=== PATIENT | female | born 1955 | race Caucasian/White ===

== ENCOUNTER 2019-12-12 15:47 | Inpatient (IN) | payer BC, OTHER ==
[2019-12-12] MEDS ORDERED: Acetaminophen 325 MG Tab PO PRN (17:07)
[2019-12-12] MEDS ORDERED: Ondansetron 4 MG/2 ML SDV IVPUSH PRN (21:03)
[2019-12-12] MEDS ORDERED: Ondansetron 4 MG Tab.DIS PO PRN (21:03)
--- NOTE | 2019-12-12 21:15 | PCM.HP ---
H&P History of Present Illness - General Date of Service: 12/12/19 Admit Problem/Dx: Admission Diagnosis/Problem Admission Diagnosis/Problem Hypokalemia Source of Information: Patient - History of Present Illness Initial Comments - Free Text/Narative: Patient is a 64-year-old female with medical history significant for dyslipidemia, depression, GERD, reactive airway disease, obesity, and elevated liver results who presented to the clinic with complaints of fatigue and weakness was found to have severe hypokalemia so was referred for admission. Patient reports that she tested positive for COVID-19 on 11/28/2019. Reports that she had intermittent fevers but symptoms resolved this past Wednesday. Reports that today she felt significantly fatigued and was also having a headache so came to the clinic. She was found to have potassium of 2.7. Also her chest x-ray showed possible infiltrate. She was referred for admission. Patient reports cough without sputum production. Reports that she gets short of breath with exertion. Denies any bleeding problems while at rest. Denies getachew sea, vomiting, diarrhea, constipation, dysuria, chest pain, diaphoresis, or any new symptoms. Reports that her headache is resolved at this point. Denies tobacco use. States that her last alcohol intake was about 2 months ago. However normally drinks 1 drink of wine at night. Denies any illicit drug use. - Related Data Allergies/Adverse Reactions: Allergies Allergy/AdvReac Type Severity Reaction Status Date / Time amoxicillin trihydrate Allergy Cannot Verified 12/12/19 16:36 [From Augmentin] Remember aspirin Allergy Cannot Verified 12/12/19 16:36 Remember erythromycin base Allergy Cannot Verified 12/12/19 16:36 [Erythromycin Base] Remember potassium clavulanate Allergy Cannot Verified 12/12/19 16:36 [From Augmentin] Remember Home Medications: Home Meds FLUoxetine HCl [Prozac] 20 mg PO DAILY 07/07/13 [History] Fexofenadine/Pseudoephedrine [Sabrina-D 12 Hour Tablet] 1 each PO BID 07/07/13 [History] Omeprazole [Prilosec] 20 mg PO DAILY 07/07/13 [History] Pravastatin [Pravachol] 40 mg PO BEDTIME 12/12/19 [History] Past Medical History HEENT History: Reports: None Gastrointestinal History: Reports: None COMMODITIES REQUIREMENTS ANALYST History: Reports: Other (See Below) Other OB/BYN History: partial hysterectomy - Infectious Disease History Infectious Disease History: Reports: Chicken Pox, Measles, Mumps - Past Surgical History HEENT Surgical History: Reports: Naso-Sinus Surgery GI Surgical History: Reports: Cholecystectomy Social & Family History - Family History Family Medical History: Noncontributory - Tobacco Use Smoking Status *Q: Never Smoker Second Hand Smoke Exposure: No - Caffeine Use Caffeine Use: Reports: Coffee, Tea - Recreational Drug Use Recreational Drug Use: No H&P Review of Systems - Review of Systems: Review Of Systems: Comprehensive ROS is negative, except as noted in HPI. Exam - Exam Exam: See Below - Vital Signs Vital Signs: Last Vital Signs Temp 97.6 F 12/12/19 19:48 Pulse 111 H 12/12/19 19:48 Resp 20 12/12/19 19:48 BP 139/80 12/12/19 19:48 Pulse Ox 89 L 12/12/19 19:48 Weight: 174 lb - Exam Quality Assessment: Supplemental Oxygen (2L via nasal cannula.) General: Alert, Oriented, Cooperative, Mild Distress HEENT: Conjunctiva Clear, EOMI, Hearing Intact Neck: Supple, Trachea Midline Lungs: Normal Respiratory Effort, Crackles (Fine crackles. ) Cardiovascular: Regular Rate, Regular Rhythm, Normal S1 GI/Abdominal Exam: Normal Bowel Sounds, Soft, Non-Tender, No Distention Extremities: Normal Inspection, Non-Tender, No Pedal Edema Skin: Warm, Dry, Intact Neuro Extensive - Mental Status: Alert, Oriented x3, Normal Mood/Affect, Memory Intact Psychiatric: Alert, Normal Affect, Normal Mood - Patient Data Result Diagrams: 12/12/19 21:33 - Problem List (1) Pneumonia due to COVID-19 virus SNOMED Code(s): 456538630181944265 ICD Code: U07.1 - COVID-19; J12.89 - OTHER VIRAL PNEUMONIA Status: Acute Current Visit: Yes (2) Hypokalemia SNOMED Code(s): 53520539 ICD Code: E87.6 - HYPOKALEMIA Status: Acute Current Visit: Yes (3) Acute respiratory failure due to COVID-19 SNOMED Code(s): 990982298 ICD Code: U07.1 - COVID-19; J96.00 - ACUTE RESPIRATORY FAILURE, UNSP W HYPOXIA OR HYPERCAPNIA Status: Acute Current Visit: Yes Problem List Initiated/Reviewed/Updated: Yes Orders Last 24hrs: Active Orders 24 hr Category Date Time Status Patient Status [ADT] Routine ADT 12/12/19 21:04 Ordered Ambulate [RC] ASDIRECTED Care 12/12/19 17:08 Active Influenza Vaccine Charge [RC] .DISCHARGE Care 12/12/19 16:38 Active Oxygen Therapy [RC] PRN Care 12/12/19 21:04 Ordered Peripheral IV Care [RC] . DIRECTED Care 12/12/19 17:06 Active Supplemental O2 [Oxygen Therapy] [RC] ASDIRECTED Care 12/12/19 17:06 Active Telemetry Monitoring [Cardiac Monitoring] [RC] . Care 12/12/19 17:04 Active DIRECTED Up With Assistance [RC] ASDIRECTED Care 12/12/19 21:03 Ordered VTE/DVT Education [RC] PER UNIT ROUTINE Care 12/12/19 21:04 Ordered Vital Signs [RC] Q4H Care 12/12/19 17:08 Active Vital Signs [RC] Q4H Care 12/12/19 21:04 Ordered Regular Diet [DIET] Diet 12/12/19 Dinner Active Regular Diet [DIET] Diet 12/12/19 Dinner Ordered BASIC METABOLIC PANEL,BMP [CHEM] AM Lab 12/13/19 05:11 Ordered C-REACTIVE PROTEIN [CHEM] Routine Lab 12/12/19 21:11 Ordered CBC W/O DIFF,HEMOGRAM [HEME] AM Lab 12/13/19 05:11 Ordered D-DIMER QUANTITATIVE [COAG] Routine Lab 12/12/19 21:11 Ordered FERRITIN [CHEM] Routine Lab 12/12/19 21:11 Ordered LACTATE DEHYDROGENASE,LDH [CHEM] Routine Lab 12/12/19 21:11 Ordered MAGNESIUM [CHEM] Stat Lab 12/12/19 21:03 Ordered PHOSPHORUS [CHEM] Stat Lab 12/12/19 21:03 Ordered POTASSIUM,K [CHEM] Stat Lab 12/12/19 21:03 Ordered TROPONIN I [CHEM] Routine Lab 12/12/19 21:11 Ordered Acetaminophen [TylenoL] Med 12/12/19 17:07 Active 650 mg PO Q4H PRN Enoxaparin [Lovenox] Med 12/12/19 21:15 Ordered 40 mg SUBCUT BID FLUoxetine HCl [Prozac] Med 10/07/20 09:00 Ordered 20 mg PO DAILY Fexofenadine/Pseudoephedrine [Sabrina-D 12 Hour Tablet] Med 12/13/19 09:00 Ordered 1 each PO BID Lactated Ringers @ 125 MLS/HR(1000ml) Med 12/12/19 21:15 Ordered Lactated Ringers [Ringers, Lactated] 1,000 ml IV ASDIRECTED Omeprazole Med 12/13/19 09:00 Ordered 20 mg PO DAILY Ondansetron [Zofran ODT] Med 12/12/19 21:03 Ordered 4 mg PO Q6H PRN Ondansetron [Zofran] Med 12/12/19 21:03 Ordered 4 mg IVPUSH Q6H PRN Pharmacy to Dose - InFluenza V [Pharmacy to Dose - Med 12/12/19 16:38 Pending InFluenza Vaccine] 1 each IM ONETIME Pravastatin Sodium Med 12/13/19 21:00 Ordered 40 mg PO BEDTIME Remdesivir (Eua) [Remdesivir (EUA)] 100 mg Med 12/13/19 21:15 Ordered Sodium Chloride 0.9% [Normal Saline] 230 ml IV Q24H Remdesivir (Eua) [Remdesivir (EUA)] 200 mg Med 12/12/19 21:12 Ordered Sodium Chloride 0.9% [Normal Saline] 210 ml IV ONETIME Sodium Chloride 0.9% [Saline Flush] Med 12/12/19 17:06 Active 10 ml FLUSH ASDIRECTED PRN dexAMETHasone [Dexamethasone] Med 12/12/19 21:15 Ordered 6 mg IVPUSH DAILY Isolation [COMM] Routine Oth 12/12/19 17:09 Active Peripheral IV Insertion Adult [OM.PC] Routine Oth 12/12/19 17:06 Ordered Code Status [Resuscitation Status] Routine Resus Stat 12/12/19 17:04 Ordered Medication Orders Acetaminophen (Tylenol) 650 mg PO Q4H PRN PRN Reason: pain or fever Enoxaparin Sodium (Lovenox) 40 mg SUBCUT BID DICK Lactated Ringer's (Ringers, Lactated) 1,000 mls @ 125 mls/hr IV ASDIRECTED DICK Influenza Virus Vaccine (Pharmacy To Dose - Influenza Vaccine) 1 each IM ONETIME DICK Non-Formulary Medication (Fexofenadine/Pseudoephedrine [Sabrina-D 12 Hour Tablet]) 1 each PO BID DICK Non-Formulary Medication (Fluoxetine Hcl [Prozac]) 20 mg PO DAILY DICK Non-Formulary Medication (Pravastatin Sodium) 40 mg PO BEDTIME DICK Omeprazole (Omeprazole) 20 mg PO DAILY DICK Ondansetron HCl (Zofran Odt) 4 mg PO Q6H PRN PRN Reason: nausea, able to take PO Ondansetron HCl (Zofran) 4 mg IVPUSH Q6H PRN PRN Reason: Nausea/Vomiting Sodium Chloride (Saline Flush) 10 ml FLUSH ASDIRECTED PRN PRN Reason: Keep Vein Open Assessment/Plan Comment:: #Severe hypokalemia: Patient with potassium of 2.7. With associated weakness and fatigue. Repeat potassium levels Check magnesium and phosphorus Telemonitoring Monitor replace electrolytes #COVID-19 pneumonia: #Acute respiratory failure with hypoxia Obtain d-dimer, ferritin, lactic acid, and troponin Patient tested positive on 11/28/2019, already 14 days out. Dexamethasone Supplemental oxygen, titrate to SPO2 > 92% Incentive spirometer #Mood disorder Continue Prozac #GERD: Continue Prilosec #Dyslipidemia Pravachol DVT prophylaxis: Lovenox GI prophylaxis: General diet, CODE STATUS: Full code per patient preference
[2019-12-12] MEDS ORDERED: Enoxaparin 40 MG/0.4 ML Syringe SUBCUT ONE (22:00)
[2019-12-12] MEDS: Dexamethasone 4 MG/ML SDV IVPUSH SCH (22:19)
[2019-12-12] MEDS: Lactated Ringers 1,000 ML IV SCH (22:24)
[2019-12-12] MEDS: Potassium Chloride 10 MEQ in Premix Bag 1 BAG IV SCH (23:04)
[2019-12-13] MEDS: Potassium Chloride 10 MEQ in Premix Bag 1 BAG IV SCH ×3 (00:31→03:29)
[2019-12-13] MEDS: Omeprazole 20 MG Cap.CR PO SCH (05:04)
[2019-12-13] MEDS: Lactated Ringers 1,000 ML IV SCH (05:09)
[2019-12-13 07:19] LABS: ANION GAP 11.9 mEq/L (7-13); CHLORIDE,CL 108 mmol/L (98-107); SODIUM,NA 146 mmol/L (136-145)
[2019-12-13] MEDS: Potassium Chloride 10 MEQ Tab.ER PO SCH ×2 (08:51→17:17)
[2019-12-13] MEDS: Dexamethasone 4 MG/ML SDV IVPUSH SCH (08:52)
[2019-12-13] MEDS: Enoxaparin 40 MG/0.4 ML Syringe SUBCUT SCH ×2 (08:53→21:20)
[2019-12-13] MEDS: FLUoxetine 10 MG Cap PO SCH (08:54)
[2019-12-13] MEDS ORDERED: diphenhydrAMINE 50 MG/ML SDV IVPUSH ONE (12:48)
[2019-12-13] MEDS ORDERED: Sodium Chloride 0.9% 250 ML IV SCH (13:00)
--- NOTE | 2019-12-13 13:01 | PCM.PN ---
- General Info Date of Service: 12/13/19 Admission Dx/Problem (Free Text): Admission Diagnosis/Problem Admission Diagnosis/Problem Hypokalemia Subjective Update: No acute events overnight. Her ferritin came back at 2280, d-dimer was 1090. Potassium is increased to 3.6. Her LDH was elevated at 276. Troponin was negative. CRP was also elevated at 7.8. Patient continues to require supplemental oxygen. Reports that she continues to feel very weak and tired. Denies nausea, vomiting, diarrhea, constipation, dysuria, hematuria, edema, or any new symptoms. - Patient Data Vitals - Most Recent: Last Vital Signs Temp 97 F 12/13/19 08:48 Pulse 71 12/13/19 08:48 Resp 21 H 12/13/19 08:48 BP 142/82 H 12/13/19 08:48 Pulse Ox 93 L 12/13/19 12:49 Weight - Most Recent: 174 lb I&O - Last 24 Hours: Intake & Output 12/12/19 12/13/19 12/13/19 22:59 06:59 14:59 Intake Total 1974 Output Total 800 750 Balance 1174 -750 Lab Results Last 24 Hours: Laboratory Results - last 24 hr 12/12/19 12/12/19 12/12/19 Range/Units 21:33 21:33 21:33 WBC (5.0-10.0) 10^3/uL RBC (4.2-5.4) 10^6/uL Hgb (12.0-16.0) g/dL Hct (37.0-47.0) % MCV (80-100) fL MCH (27.0-34.0) pg MCHC (33.0-35.0) g/dL Plt Count (150-450) 10^3/uL D-Dimer, Quantitative 1090 H (0-400) ng/mL Sodium (136-145) mmol/L Potassium 2.6 L (3.5-5.1) mmol/L Chloride (98-107) mmol/L Carbon Dioxide (21-32) mmol/L Anion Gap (7-13) mEq/L BUN (7-18) mg/dL Creatinine (0.55-1.02) mg/dL Est Cr Clr Drug Dosing mL/min Estimated GFR (MDRD) Glucose (74-99) mg/dL Calcium (8.5-10.1) mg/dL Phosphorus 2.3 L (2.6-4.7) mg/dL Magnesium 1.9 (1.8-2.4) mg/dL Ferritin 2280 H (8-252) mg/mL Lactate Dehydrogenase 276 H (81-234) U/L Troponin I < 0.017 (0.000-0.056) ng/mL C-Reactive Protein 7.8 H (0.0-0.9) mg/dL 12/13/19 12/13/19 Range/Units 06:32 06:32 WBC 8.0 (5.0-10.0) 10^3/uL RBC 4.35 (4.2-5.4) 10^6/uL Hgb 13.3 (12.0-16.0) g/dL Hct 39.4 (37.0-47.0) % MCV 90.6 (80-100) fL MCH 30.6 (27.0-34.0) pg MCHC 33.8 (33.0-35.0) g/dL Plt Count 285 (150-450) 10^3/uL D-Dimer, Quantitative (0-400) ng/mL Sodium 146 H (136-145) mmol/L Potassium 3.9 (3.5-5.1) mmol/L Chloride 108 H (98-107) mmol/L Carbon Dioxide 30 (21-32) mmol/L Anion Gap 11.9 (7-13) mEq/L BUN 9 (7-18) mg/dL Creatinine 0.53 L (0.55-1.02) mg/dL Est Cr Clr Drug Dosing 104.28 mL/min Estimated GFR (MDRD) > 60 Glucose 136 H (74-99) mg/dL Calcium 8.9 (8.5-10.1) mg/dL Phosphorus (2.6-4.7) mg/dL Magnesium (1.8-2.4) mg/dL Ferritin (8-252) mg/mL Lactate Dehydrogenase (81-234) U/L Troponin I (0.000-0.056) ng/mL C-Reactive Protein (0.0-0.9) mg/dL Med Orders - Current: Current Medications Acetaminophen (Tylenol) 650 mg PO Q4H PRN PRN Reason: pain or fever Dexamethasone (Dexamethasone) 6 mg IVPUSH DAILY [facility] Last Admin: 12/13/19 08:52 Dose: 6 mg Documented by: Diphenhydramine HCl (Benadryl) 25 mg IVPUSH ONETIME ONE Stop: 12/13/19 12:49 Enoxaparin Sodium (Lovenox) 40 mg SUBCUT BID [facility] Last Admin: 12/13/19 08:53 Dose: 40 mg Documented by: Fluoxetine HCl (Prozac) 20 mg PO DAILY [facility] Last Admin: 12/13/19 08:54 Dose: 20 mg Documented by: Lactated Ringer's (Ringers, Lactated) 1,000 mls @ 125 mls/hr IV ASDIRECTED [facility] Last Admin: 12/13/19 05:09 Dose: 125 mls/hr Documented by: Sodium Chloride (Normal Saline) 250 mls @ 20 mls/hr IV ASDIRECTED [facility] Remdesivir 200 mg/ Sodium (Chloride) 210 mls @ 210 mls/hr IV ONETIME ONE Stop: 12/13/19 12:51 Remdesivir 100 mg/ Sodium (Chloride) 230 mls @ 230 mls/hr IV Q24H [facility] Influenza Virus Vaccine (Pharmacy To Dose - Influenza Vaccine) 1 each IM ON ETIME [facility] Non-Formulary Medication (Fexofenadine/Pseudoephedrine [Sabrina-D 12 Hour Tablet]) 1 each PO BID [facility] Omeprazole (Omeprazole) 20 mg PO ACBREAKFAST [facility] Last Admin: 12/13/19 05:04 Dose: 20 mg Documented by: Ondansetron HCl (Zofran Odt) 4 mg PO Q6H PRN PRN Reason: nausea, able to take PO Ondansetron HCl (Zofran) 4 mg IVPUSH Q6H PRN PRN Reason: Nausea/Vomiting Potassium Chloride (Klor-Con 10) 40 meq PO BIDMEALS [facility] Last Admin: 12/13/19 08:51 Dose: 40 meq Documented by: Pravastatin Sodium (Pravachol) 40 mg PO BEDTIME [facility] Sodium Chloride (Saline Flush) 10 ml FLUSH ASDIRECTED PRN PRN Reason: Keep Vein Open Discontinued Medications Enoxaparin Sodium (Lovenox) 40 mg SUBCUT ONETIME ONE Stop: 12/12/19 22:01 Last Admin: 12/12/19 22:17 Dose: 40 mg Documented by: Remdesivir 200 mg/ Sodium (Chloride) 210 mls @ 210 mls/hr IV ONETIME ONE Stop: 12/12/19 21:13 Last Admin: 12/13/19 01:11 Dose: Not Given Documented by: Remdesivir 100 mg/ Sodium (Chloride) 230 mls @ 230 mls/hr IV Q24H DICK Potassium Chloride 10 meq/ (Premix) 100 mls @ 100 mls/hr IV Q1H DICK Stop: 12/13/19 02:14 Last Infusion: 12/13/19 04:57 Dose: Infused Documented by: - Exam Quality Assessment: Supplemental Oxygen (3L via NC) General: Alert, Oriented, Cooperative, Moderate Distress HEENT: Pupils Equal, Pupils Reactive, Mucous Membr. Moist/[place] Neck: Supple Lungs: Rales (Bilateral) Cardiovascular: Regular Rhythm, No Murmurs, Tachycardia GI/Abdominal Exam: Normal Bowel Sounds, Soft, Non-Tender, No Distention Extremities: Normal Inspection, Non-Tender, No Pedal Edema Skin: Warm, Dry, Intact Neurological: No New Focal Deficit Psy/Mental Status: Alert, Normal Affect, Normal Mood Sepsis Event Note - Evaluation Sepsis Screening Result: No Definite Risk - Focused Exam Vital Signs: Vital Signs Temp Pulse Resp BP BP Pulse Ox Pulse Ox 12/13/19 12:49 93 L 12/13/19 08:48 97 F 71 21 H 142/82 H 91 L 12/13/19 04:03 97 F 70 24 H 121/67 94 L 12/13/19 00:58 78 24 H 128/67 92 L - Problem List & Annotations (1) Pneumonia due to COVID-19 virus SNOMED Code(s): 047639521827108892 Code(s): U07.1 - COVID-19; J12.89 - OTHER VIRAL PNEUMONIA Status: Acute Current Visit: Yes (2) Hypokalemia SNOMED Code(s): 40700269 Code(s): E87.6 - HYPOKALEMIA Status: Acute Current Visit: Yes (3) Acute respiratory failure due to COVID-19 SNOMED Code(s): 476319138 Code(s): U07.1 - COVID-19; J96.00 - ACUTE RESPIRATORY FAILURE, UNSP W HYPOXIA OR HYPERCAPNIA Status: Acute Current Visit: Yes - Problem List Review Problem List Initiated/Reviewed/Updated: Yes - My Orders Last 24 Hours: My Active Orders 12/12/19 Dinner Regular Diet [DIET] 12/12/19 21:03 Up With Assistance [RC] ASDIRECTED Ondansetron [Zofran ODT] 4 mg PO Q6H PRN Ondansetron [Zofran] 4 mg IVPUSH Q6H PRN 12/12/19 21:04 Patient Status [ADT] Routine Oxygen Therapy [RC] PRN VTE/DVT Education [RC] PER UNIT ROUTINE Vital Signs [RC] 00,04,08,12,16,20 12/12/19 21:15 Lactated Ringers [Ringers, Lactated] 1,000 ml IV ASDIRECTED dexAMETHasone [Dexamethasone] 6 mg IVPUSH DAILY 12/13/19 06:00 Omeprazole 20 mg PO ACBREAKFAST 12/13/19 08:00 Chest w Cont [CT] Routine Potassium Chloride [Klor-Con 10] 40 meq PO BIDMEALS 12/13/19 08:27 Antiembolic Devices [RC] 08,20 RALPH Hose [Antiembolic Hose] [OM.PC] Routine 12/13/19 09:00 Enoxaparin [Lovenox] 40 mg SUBCUT BID FLUoxetine [PROzac] 20 mg PO DAILY Fexofenadine/Pseudoephedrine [Sabrina-D 12 Hour Tablet] 1 each PO BID 12/13/19 12:48 Verify Patient Consent Obtain [RC] ASDIRECTED FRESH FROZEN PLASMA [BBK] Routine diphenhydrAMINE [Benadryl] 25 mg IVPUSH ONETIME ONE Isolation [COMM] Stat Transfuse Fresh Frozen Plasma [COMM] Routine 12/13/19 12:50 Remdesivir (Eua) [Remdesivir (EUA)] 200 mg Sodium Chloride 0.9% [Normal Saline] 210 ml IV ONETIME 12/13/19 12:51 CBC WITH AUTO DIFF [HEME] Routine 12/13/19 13:00 Sodium Chloride 0.9% [Normal Saline] 250 ml IV ASDIRECTED 12/13/19 21:00 Pravastatin [Pravachol] 40 mg PO BEDTIME 12/14/19 05:00 BASIC METABOLIC PANEL,BMP [CHEM] DAILY D-DIMER QUANTITATIVE [COAG] DAILY FERRITIN [CHEM] DAILY HEPATIC FUNCTION PANEL,HFP [CHEM] DAILY LACTATE DEHYDROGENASE,LDH [CHEM] DAILY LACTIC ACID [CHEM] DAILY MAGNESIUM [CHEM] DAILY PROCALCITONIN [REF] DAILY TROPONIN I [CHEM] DAILY 12/14/19 05:11 C-REACTIVE PROTEIN [CHEM] AM 12/14/19 13:00 Remdesivir (Eua) [Remdesivir (EUA)] 100 mg Sodium Chloride 0.9% [Normal Saline] 230 ml IV Q24H 12/15/19 05:00 BASIC METABOLIC PANEL,BMP [CHEM] DAILY D-DIMER QUANTITATIVE [COAG] DAILY FERRITIN [CHEM] DAILY HEPATIC FUNCTION PANEL,HFP [CHEM] DAILY LACTATE DEHYDROGENASE,LDH [CHEM] DAILY LACTIC ACID [CHEM] DAILY MAGNESIUM [CHEM] DAILY PROCALCITONIN [REF] DAILY TROPONIN I [CHEM] DAILY 12/15/19 05:11 C-REACTIVE PROTEIN [CHEM] AM 12/16/19 05:00 BASIC METABOLIC PANEL,BMP [CHEM] DAILY D-DIMER QUANTITATIVE [COAG] DAILY FERRITIN [CHEM] DAILY HEPATIC FUNCTION PANEL,HFP [CHEM] DAILY LACTATE DEHYDROGENASE,LDH [CHEM] DAILY LACTIC ACID [CHEM] DAILY MAGNESIUM [CHEM] DAILY PROCALCITONIN [REF] DAILY TROPONIN I [CHEM] DAILY 12/16/19 05:11 C-REACTIVE PROTEIN [CHEM] AM - Plan Plan:: #Severe hypokalemia: Resolved with aggressive replacement. K up to 3.9. Patient presented with potassium of 2.7. With associated weakness and fatigue. Repeat potassium levels Check magnesium and phosphorus Telemonitoring Monitor replace electrolytes #COVID-19 pneumonia:: #Acute respiratory failure with hypoxia. Patient tested positive on 11/28/2019, -Continue Remdesivir -Give 2 units of convalescent plasma -Dexamethasone -Supplemental oxygen, titrate to SPO2 > 92% -Incentive spirometer -CT chest PE protocol due to elevated D-dimer -I spoke with patient and provided information about Remdesevir treatment as being under emergency use authorization (EUA) and not fully FDA approved or reviewed. I discussed potential side effects including liver abnormalities. Also discussed other potential treatment options that are currently not FDA approved to treat COVID-19. Patient gives permission for Remdesevir. #Mood disorder Continue Prozac #GERD: Continue Prilosec #Dyslipidemia Pravachol DVT prophylaxis: Lovenox GI prophylaxis: General diet, CODE STATUS: Full code per patient preference
[2019-12-13] MEDS ORDERED: Iopamidol 755 Mg/ML 100 ML Bottle IVPUSH ONE (15:48)
--- NOTE | 2019-12-13 16:14 | CT ---
EXAMINATION: Chest w Cont SEX: Female AGE: 64 years CLINICAL HISTORY: 64-year-old 174 pound female hospitalized with "COVID viral infection and now elevated serum D dimer (1090). Rule out pulmonary embolism or infarct. Scan technique: Volume acquisition of data from the chest (bony thorax, lungs and mediastinum) obtained during the intravenous infusion 66 cc nonionic Isovue 370 at 5 cc/s via injector while patient was lying supine on the Siemens multi slice scanner [place], [place]. All data archived in the PACS system for storage, reformatting axial/sagittal/coronal planes and study. Interpretation: Markedly Abnormal. 1. Numerous (multiple) peripheral, pleural-based, parenchymal lung densities in distribution of and consistent with COVID19 viral infection i.e. Covid pneumonia. 2. No sign of intraluminal filling defect or thrombus identified in proximal main or mid lung pulmonary arteries. 3. No dependent pleural fluid accumulation (effusions). 4. No parenchymal lung mass or mediastinal lymphadenopathy. 5. Normal cardiac silhouette. No pericardial effusion. No pulmonary vascular congestion or alveolar edema. 6. Upper abdominal viscera unremarkable where visualized. Normal caliber thoracic aorta. CONCLUSION: Bilateral inflammatory changes both lung [place] (acute and chronic). No pulmonary embolism, thrombus or infarct.
[2019-12-13] MEDS: Pravastatin 20 MG Tab PO SCH (21:19)
[2019-12-13] MEDS: Levofloxacin 500 MG Tab PO SCH (21:20)
[2019-12-14] MEDS: Omeprazole 20 MG Cap.CR PO SCH (06:23)
[2019-12-14 08:13] LABS: ANION GAP 15.7 mEq/L (7-13); CHLORIDE,CL 110 mmol/L (98-107); SODIUM,NA 148 mmol/L (136-145)
[2019-12-14] MEDS: Sodium Chloride 0.9% 10 ML Syringe FLUSH PRN (08:33)
[2019-12-14] MEDS: Enoxaparin 40 MG/0.4 ML Syringe SUBCUT SCH ×2 (08:34→21:11)
[2019-12-14] MEDS: Potassium Chloride 10 MEQ Tab.ER PO SCH ×2 (08:34→17:04)
[2019-12-14] MEDS: FLUoxetine 10 MG Cap PO SCH (08:35)
[2019-12-14] MEDS: Dexamethasone 4 MG/ML SDV IVPUSH SCH (08:35)
[2019-12-14] MEDS ORDERED: Sodium Chloride 0.9% 1,000 ML IV SCH (09:00)
[2019-12-14] MEDS ORDERED: diphenhydrAMINE 50 MG/ML SDV IVPUSH ONE (09:30)
[2019-12-14] MEDS ORDERED: Furosemide 20 MG/2 ML VIAL IVPUSH ONE (11:23)
--- NOTE | 2019-12-14 12:08 | PCM.PN ---
- General Info Date of Service: 12/14/19 Admission Dx/Problem (Free Text): Admission Diagnosis/Problem Admission Diagnosis/Problem Hypokalemia Subjective Update: No acute events overnight. Lactic acid elevated today. Weaned off supplemental oxygen. Reports that she continues to feel very weak. Denies nausea, vomiting, diarrhea, constipation, dysuria, hematuria, edema, or any new symptoms. - Patient Data Vitals - Most Recent: Last Vital Signs Temp 97 F 12/14/19 11:37 Pulse 80 12/14/19 11:37 Resp 22 H 12/14/19 11:37 BP 147/75 H 12/14/19 11:37 Pulse Ox 94 L 12/14/19 11:37 Weight - Most Recent: 174 lb I&O - Last 24 Hours: Intake & Output 12/13/19 12/14/19 12/14/19 22:59 06:59 14:59 Intake Total 972 Balance 972 Lab Results Last 24 Hours: Laboratory Results - last 24 hr 12/13/19 12/13/19 12/14/19 Range/Units 06:32 06:32 06:55 WBC (5.0-10.0) 10^3/uL RBC (4.2-5.4) 10^6/uL Hgb (12.0-16.0) g/dL Hct (37.0-47.0) % MCV (80-100) fL MCH (27.0-34.0) pg MCHC (33.0-35.0) g/dL Plt Count (150-450) 10^3/uL Neut % (Auto) (42.2-75.2) % Lymph % (Auto) (20.5-50.1) % Nobles % (Auto) (2-8) % Eos % (Auto) (1.0-3.0) % Baso % (Auto) (0.0-1.0) % Add Manual Diff Neutrophils % (Manual) (42-75) % Lymphocytes % (Manual) (20-50) % Monocytes % (Manual) (2-8) % D-Dimer, Quantitative 967 H (0-400) ng/mL Sodium (136-145) mmol/L Potassium (3.5-5.1) mmol/L Chloride (98-107) mmol/L Carbon Dioxide (21-32) mmol/L Anion Gap (7-13) mEq/L BUN (7-18) mg/dL Creatinine (0.55-1.02) mg/dL Est Cr Clr Drug Dosing mL/min Estimated GFR (MDRD) Glucose (74-99) mg/dL Lactic Acid (0.4-2.0) mmol/L Calcium (8.5-10.1) mg/dL Phosphorus (2.6-4.7) mg/dL Magnesium (1.8-2.4) mg/dL Ferritin (8-252) mg/mL Total Bilirubin 0.8 (0.2-1.0) mg/dL Direct Bilirubin 0.2 (0.0-0.2) mg/dL Indirect Bilirubin 0.6 AST 50 H (15-37) U/L ALT 63 H (14-59) U/L Alkaline Phosphatase 59 (46-116) U/L Lactate Dehydrogenase (81-234) U/L Troponin I (0.000-0.056) ng/mL C-Reactive Protein (0.0-0.9) mg/dL Total Protein 6.3 L (6.4-8.2) g/dL Albumin 2.4 L (3.4-5.0) g/dL Globulin 3.9 Albumin/Globulin Ratio 0.62 Blood Type B POSITIVE 12/14/19 12/14/19 12/14/19 Range/Units 06:55 06:55 06:55 WBC (5.0-10.0) 10^3/uL RBC (4.2-5.4) 10^6/uL Hgb (12.0-16.0) g/dL Hct (37.0-47.0) % MCV (80-100) fL MCH (27.0-34.0) pg MCHC (33.0-35.0) g/dL Plt Count (150-450) 10^3/uL Neut % (Auto) (42.2-75.2) % Lymph % (Auto) (20.5-50.1) % Nobles % (Auto) (2-8) % Eos % (Auto) (1.0-3.0) % Baso % (Auto) (0.0-1.0) % Add Manual Diff Neutrophils % (Manual) (42-75) % Lymphocytes % (Manual) (20-50) % Monocytes % (Manual) (2-8) % D-Dimer, Quantitative (0-400) ng/mL Sodium 148 H (136-145) mmol/L Potassium 3.7 (3.5-5.1) mmol/L Chloride 110 H (98-107) mmol/L Carbon Dioxide 26 (21-32) mmol/L Anion Gap 15.7 H (7-13) mEq/L BUN 16 (7-18) mg/dL Creatinine 0.70 (0.55-1.02) mg/dL Est Cr Clr Drug Dosing 78.95 mL/min Estimated GFR (MDRD) > 60 Glucose 105 H (74-99) mg/dL Lactic Acid 2.2 H* (0.4-2.0) mmol/L Calcium 8.6 (8.5-10.1) mg/dL Phosphorus (2.6-4.7) mg/dL Magnesium 1.8 (1.8-2.4) mg/dL Ferritin 1918 H (8-252) mg/mL Total Bilirubin 0.7 (0.2-1.0) mg/dL Direct Bilirubin 0.2 (0.0-0.2) mg/dL Indirect Bilirubin 0.5 AST 50 H (15-37) U/L ALT 67 H (14-59) U/L Alkaline Phosphatase 66 (46-116) U/L Lactate Dehydrogenase 216 (81-234) U/L Troponin I < 0.017 (0.000-0.056) ng/mL C-Reactive Protein (0.0-0.9) mg/dL Total Protein 6.0 L (6.4-8.2) g/dL Albumin 2.3 L (3.4-5.0) g/dL Globulin 3.7 Albumin/Globulin Ratio 0.62 Blood Type 12/14/19 12/14/19 12/14/19 Range/Units 06:55 06:55 06:55 WBC 14.0 H (5.0-10.0) 10^3/uL RBC 4.24 (4.2-5.4) 10^6/uL Hgb 13.2 (12.0-16.0) g/dL Hct 39.5 (37.0-47.0) % MCV 93.2 (80-100) fL MCH 31.1 (27.0-34.0) pg MCHC 33.4 (33.0-35.0) g/dL Plt Count 260 (150-450) 10^3/uL Neut % (Auto) 65.1 (42.2-75.2) % Lymph % (Auto) 24.8 (20.5-50.1) % Nobles % (Auto) 9.3 H (2-8) % Eos % (Auto) 0.4 L (1.0-3.0) % Baso % (Auto) 0.4 (0.0-1.0) % Add Manual Diff Yes Neutrophils % (Manual) 63 (42-75) % Lymphocytes % (Manual) 30 (20-50) % Monocytes % (Manual) 7 (2-8) % D-Dimer, Quantitative (0-400) ng/mL Sodium (136-145) mmol/L Potassium (3.5-5.1) mmol/L Chloride (98-107) mmol/L Carbon Dioxide (21-32) mmol/L Anion Gap (7-13) mEq/L BUN (7-18) mg/dL Creatinine (0.55-1.02) mg/dL Est Cr Clr Drug Dosing mL/min Estimated GFR (MDRD) Glucose (74-99) mg/dL Lactic Acid (0.4-2.0) mmol/L Calcium (8.5-10.1) mg/dL Phosphorus 2.6 (2.6-4.7) mg/dL Magnesium (1.8-2.4) mg/dL Ferritin (8-252) mg/mL Total Bilirubin (0.2-1.0) mg/dL Direct Bilirubin (0.0-0.2) mg/dL Indirect Bilirubin AST (15-37) U/L ALT (14-59) U/L Alkaline Phosphatase (46-116) U/L Lactate Dehydrogenase (81-234) U/L Troponin I (0.000-0.056) ng/mL C-Reactive Protein 3.8 H (0.0-0.9) mg/dL Total Protein (6.4-8.2) g/dL Albumin (3.4-5.0) g/dL Globulin Albumin/Globulin Ratio Blood Type 12/14/19 Range/Units 11:00 WBC (5.0-10.0) 10^3/uL RBC (4.2-5.4) 10^6/uL Hgb (12.0-16.0) g/dL Hct (37.0-47.0) % MCV (80-100) fL MCH (27.0-34.0) pg MCHC (33.0-35.0) g/dL Plt Count (150-450) 10^3/uL Neut % (Auto) (42.2-75.2) % Lymph % (Auto) (20.5-50.1) % Nobles % (Auto) (2-8) % Eos % (Auto) (1.0-3.0) % Baso % (Auto) (0.0-1.0) % Add Manual Diff Neutrophils % (Manual) (42-75) % Lymphocytes % (Manual) (20-50) % Monocytes % (Manual) (2-8) % D-Dimer, Quantitative (0-400) ng/mL Sodium (136-145) mmol/L Potassium (3.5-5.1) mmol/L Chloride (98-107) mmol/L Carbon Dioxide (21-32) mmol/L Anion Gap (7-13) mEq/L BUN (7-18) mg/dL Creatinine (0.55-1.02) mg/dL Est Cr Clr Drug Dosing mL/min Estimated GFR (MDRD) Glucose (74-99) mg/dL Lactic Acid 2.7 H* (0.4-2.0) mmol/L Calcium (8.5-10.1) mg/dL Phosphorus (2.6-4.7) mg/dL Magnesium (1.8-2.4) mg/dL Ferritin (8-252) mg/mL Total Bilirubin (0.2-1.0) mg/dL Direct Bilirubin (0.0-0.2) mg/dL Indirect Bilirubin AST (15-37) U/L ALT (14-59) U/L Alkaline Phosphatase (46-116) U/L Lactate Dehydrogenase (81-234) U/L Troponin I (0.000-0.056) ng/mL C-Reactive Protein (0.0-0.9) mg/dL Total Protein (6.4-8.2) g/dL Albumin (3.4-5.0) g/dL Globulin Albumin/Globulin Ratio Blood Type Med Orders - Current: Current Medications Acetaminophen (Tylenol) 650 mg PO Q4H PRN PRN Reason: pain or fever Dexamethasone (Dexamethasone) 6 mg IVPUSH DAILY [facility] Last Admin: 12/14/19 08:35 Dose: 6 mg Documented by: Enoxaparin Sodium (Lovenox) 40 mg SUBCUT BID [facility] Last Admin: 12/14/19 08:34 Dose: 40 mg Documented by: Fluoxetine HCl (Prozac) 20 mg PO DAILY [facility] Last Admin: 12/14/19 08:35 Dose: 20 mg Documented by: Remdesivir 100 mg/ Sodium (Chloride) 230 mls @ 230 mls/hr IV Q24H [facility] Stop: 12/17/19 14:59 Sodium Chloride (Normal Saline) 1,000 mls @ 100 mls/hr IV ASDIRECTED [facility] Stop: 12/14/19 19:01 Last Admin: 12/14/19 11:29 Dose: 100 mls/hr Documented by: Influenza Virus Vaccine (Pharmacy To Dose - Influenza Vaccine) 1 each IM DAILY [facility] Levofloxacin (Levaquin) 750 mg PO Q24H [facility] Stop: 12/19/19 21:00 Last Admin: 12/13/19 21:20 Dose: 750 mg Documented by: Omeprazole (Omeprazole) 20 mg PO ACBREAKFAST [facility] Last Admin: 12/14/19 06:23 Dose: 20 mg Documented by: Ondansetron HCl (Zofran Odt) 4 mg PO Q6H PRN PRN Reason: nausea, able to take PO Ondansetron HCl (Zofran) 4 mg IVPUSH Q6H PRN PRN Reason: Nausea/Vomiting Potassium Chloride (Klor-Con 10) 40 meq PO BIDMEALS [facility] Last Admin: 12/14/19 08:34 Dose: 40 meq Documented by: Pravastatin Sodium (Pravachol) 40 mg PO BEDTIME [facility] Last Admin: 12/13/19 21:19 Dose: 40 mg Documented by: Sodium Chloride (Saline Flush) 10 ml FLUSH ASDIRECTED PRN PRN Reason: Keep Vein Open Last Admin: 12/14/19 08:33 Dose: 10 ml Documented by: Discontinued Medications Diphenhydramine HCl (Benadryl) 25 mg IVPUSH ONETIME ONE Stop: 12/13/19 12:49 Last Admin: 12/14/19 09:32 Dose: Not Given Documented by: Diphenhydramine HCl (Benadryl) 25 mg IVPUSH ONETIME ONE Stop: 12/14/19 09:31 Last Admin: 12/14/19 09:48 Dose: 25 mg Documented by: Enoxaparin Sodium (Lovenox) 40 mg SUBCUT ONETIME ONE Stop: 12/12/19 22:01 Last Admin: 12/12/19 22:17 Dose: 40 mg Documented by: Furosemide (Lasix) 20 mg IVPUSH NOW ONE Stop: 12/14/19 11:24 Last Admin: 12/14/19 11:27 Dose: 20 mg Documented by: Lactated Ringer's (Ringers, Lactated) 1,000 mls @ 125 mls/hr IV ASDIRECTED [facility] Last Infusion: 12/13/19 16:55 Dose: Infused Documented by: Remdesivir 200 mg/ Sodium (Chloride) 210 mls @ 210 mls/hr IV ONETIME ONE Stop: 12/12/19 21:13 Last Admin: 12/13/19 01:11 Dose: Not Given Documented by: Remdesivir 100 mg/ Sodium (Chloride) 230 mls @ 230 mls/hr IV Q24H [facility] Potassium Chloride 10 meq/ (Premix) 100 mls @ 100 mls/hr IV Q1H [facility] Stop: 12/13/19 02:14 Last Infusion: 12/13/19 04:57 Dose: Infused Documented by: Sodium Chloride (Normal Saline) 250 mls @ 20 mls/hr IV ASDIRECTED [facility] Last Admin: 12/13/19 13:26 Dose: 20 mls/hr Documented by: Remdesivir 200 mg/ Sodium (Chloride) 210 mls @ 210 mls/hr IV ONETIME ONE Stop: 12/13/19 14:59 Last Infusion: 12/13/19 17:10 Dose: Infused Documented by: Iopamidol (Isovue-370 (76%)) 100 ml IVPUSH ONETIME ONE Stop: 12/13/19 15:49 Last Admin: 12/13/19 15:53 Dose: 66 ml Documented by: - Exam General: Alert, Oriented, Cooperative, Mild Distress HEENT: Pupils Equal, Pupils Reactive, Mucous Membr. Moist/Ider Neck: Supple Lungs: Crackles (at lung bases) Cardiovascular: Regular Rate, Regular Rhythm, No Murmurs GI/Abdominal Exam: Normal Bowel Sounds, Soft, Non-Tender, No Distention Extremities: Normal Inspection, Non-Tender, No Pedal Edema Skin: Warm, Dry, Intact Neurological: No New Focal Deficit Psy/Mental Status: Alert, Normal Affect, Normal Mood Sepsis Event Note - Evaluation Sepsis Screening Result: Severe Sepsis Risk - Focused Exam Vital Signs: Vital Signs Temp Temp Pulse Resp BP Pulse Ox Pulse Ox 12/14/19 11:37 97 F 80 22 H 147/75 H 94 L 12/14/19 11:36 97 F 80 22 H 147/75 H 94 L 12/14/19 11:26 97.6 F 92 20 138/78 92 L 12/14/19 10:36 97 F 75 27 H 136/72 92 L 12/14/19 10:21 96.9 F 73 26 H 140/74 93 L 12/14/19 10:00 97 F 71 24 H 145/74 H 95 12/14/19 08:29 97.3 F 66 26 H 137/73 96 12/14/19 07:16 93 L 12/14/19 02:38 97.6 F 61 25 H 123/64 93 L - Problem List & Annotations (1) Pneumonia due to COVID-19 virus SNOMED Code(s): 574538682242900257 Code(s): U07.1 - COVID-19; J12.89 - OTHER VIRAL PNEUMONIA Status: Acute Current Visit: Yes (2) Hypokalemia SNOMED Code(s): 82013276 Code(s): E87.6 - HYPOKALEMIA Status: Acute Current Visit: Yes (3) Acute respiratory failure due to COVID-19 SNOMED Code(s): 203429566 Code(s): U07.1 - COVID-19; J96.00 - ACUTE RESPIRATORY FAILURE, UNSP W HYPOXIA OR HYPERCAPNIA Status: Acute Current Visit: Yes (4) Lactic acidosis SNOMED Code(s): 22976495 Code(s): E87.2 - ACIDOSIS Status: Acute Current Visit: Yes - Problem List Review Problem List Initiated/Reviewed/Updated: Yes - My Orders Last 24 Hours: My Active Orders 12/13/19 12:48 Verify Patient Consent Obtain [RC] ASDIRECTED Isolation [COMM] Stat Transfuse Fresh Frozen Plasma [COMM] Routine 10/07/20 21:00 Pravastatin [Pravachol] 40 mg PO BEDTIME levoFLOXacin [Levaquin] 750 mg PO Q24H 12/14/19 06:55 PROCALCITONIN [REF] DAILY 12/14/19 09:00 Sodium Chloride 0.9% [Normal Saline] 1,000 ml IV ASDIRECTED 12/14/19 14:00 Remdesivir (Eua) [Remdesivir (EUA)] 100 mg Sodium Chloride 0.9% [Normal Saline] 230 ml IV Q24H 12/14/19 15:00 LACTIC ACID [CHEM] Q4H 12/15/19 05:00 BASIC METABOLIC PANEL,BMP [CHEM] DAILY D-DIMER QUANTITATIVE [COAG] DAILY FERRITIN [CHEM] DAILY HEPATIC FUNCTION PANEL,HFP [CHEM] DAILY LACTATE DEHYDROGENASE,LDH [CHEM] DAILY LACTIC ACID [CHEM] DAILY MAGNESIUM [CHEM] DAILY PROCALCITONIN [REF] DAILY TROPONIN I [CHEM] DAILY 12/15/19 05:11 C-REACTIVE PROTEIN [CHEM] AM 12/16/19 05:00 BASIC METABOLIC PANEL,BMP [CHEM] DAILY D-DIMER QUANTITATIVE [COAG] DAILY FERRITIN [CHEM] DAILY HEPATIC FUNCTION PANEL,HFP [CHEM] DAILY LACTATE DEHYDROGENASE,LDH [CHEM] DAILY LACTIC ACID [CHEM] DAILY MAGNESIUM [CHEM] DAILY PROCALCITONIN [REF] DAILY TROPONIN I [CHEM] DAILY 12/16/19 05:11 C-REACTIVE PROTEIN [CHEM] AM - Plan Plan:: #Severe hypokalemia: Resolved with aggressive replacement. K up to 3.9. Patient presented with potassium of 2.7. With associated weakness and fatigue. Telemonitoring Monitor replace electrolytes #COVID-19 pneumonia:: #Acute respiratory failure with hypoxia. -Patient tested positive on 11/28/2019, -Continue Remdesivir -Give 2 units of convalescent plasma, being administered today -Dexamethasone -Supplemental oxygen, titrate to SPO2 > 92% -Incentive spirometer -One time dose of IV lasix. -CT chest PE protocol due to elevated D-dimer -I spoke with patient and provided information about Remdesevir treatment as being under emergency use authorization (EUA) and not fully FDA approved or reviewed. I discussed potential side effects including liver abnormalities. Also discussed other potential treatment options that are currently not FDA approved to treat COVID-19. Patient gives permission for Remdesevir. #Lactic acidosis: - Up to 2.7, from 2.2 - IVF. - Trend lactic acid #Mood disorder Continue Prozac #GERD: Continue Prilosec #Dyslipidemia Pravachol DVT prophylaxis: Lovenox GI prophylaxis: General diet, CODE STATUS: Full code per patient preference
[2019-12-14] MEDS: Levofloxacin 500 MG Tab PO SCH (21:09)
[2019-12-14] MEDS: Pravastatin 20 MG Tab PO SCH (21:11)
[2019-12-15] MEDS: Omeprazole 20 MG Cap.CR PO SCH (05:41)
[2019-12-15 07:05] LABS: CHLORIDE,CL 109 mmol/L (98-107); SODIUM,NA 146 mmol/L (136-145)
[2019-12-15 08:37] VITALS: BP 141/83; PULSE 71
[2019-12-15] MEDS: Enoxaparin 40 MG/0.4 ML Syringe SUBCUT SCH (08:38)
[2019-12-15] MEDS: Potassium Chloride 10 MEQ Tab.ER PO SCH (08:39)
[2019-12-15] MEDS: FLUoxetine 10 MG Cap PO SCH (08:39)
[2019-12-15] MEDS: Dexamethasone 4 MG/ML SDV IVPUSH SCH (08:40)
[2019-12-15] MEDS: Sodium Chloride 0.9% 10 ML Syringe FLUSH PRN (08:41)
--- NOTE | 2019-12-15 10:49 | PCM.DCSUM1 ---
Discharge Summary - Hospital Course Free Text/Narrative:: Patient is a 64-year-old female with medical history significant for dyslipidemia, depression, GERD, reactive airway disease, obesity, and elevated liver enzymes who was admitted for hypoxkalemia, acute respiratory failure with hypoxia, and COVID-19 morning. Patient's O2 saturation was in the 80s on room air. She was placed on 2 L of oxygen. She was started on dexamethasone. Patient received 2 units of convalescent plasma during hospitalization. She also received Levaquin and Remdesivir during hospitalization. Patient was weaned off oxygen and was saturating well on room air. On presentation, patient's potassium was 3.6. She received IV and oral potassium replacement. Patient had elevated d-dimer and elevated lactic acid. CT chest pulmonary embolism protocol was negative. Lactic acid improved with IV fluids. Patient is being discharged home to continue dexamethasone, Eliquis, and Levaquin. She is to follow-up with PCP in about 1 week. HPI Initial Comments: Patient is a 64-year-old female with medical history significant for dyslipidemia, depression, GERD, reactive airway disease, obesity, and elevated liver results who presented to the clinic with complaints of fatigue and weakne ss was found to have severe hypokalemia so was referred for admission. Patient reports that she tested positive for COVID-19 on 11/28/2019. Reports that she had intermittent fevers but symptoms resolved this past Wednesday. Reports that today she felt significantly fatigued and was also having a headache so came to the clinic. She was found to have potassium of 2.7. Also her chest x-ray showed possible infiltrate. She was referred for admission. Patient reports cough without sputum production. Reports that she gets short of breath with exertion. Denies any bleeding problems while at rest. Denies nausea, vomiting, diarrhea, constipation, dysuria, chest pain, diaphoresis, or any new symptoms. Reports that her headache is resolved at this point. Denies tobacco use. States that her last alcohol intake was about 2 months ago. However normally drinks 1 drink of wine at night. Denies any illicit drug use. Diagnosis: Stroke: No - Discharge Data Discharge Date: 12/15/19 Discharge Disposition: Home, Self-Care 01 Condition: Good - Referral to Home Health Primary Care Physician: Anamika Tinoco NP - Discharge Diagnosis/Problem(s) (1) Pneumonia due to COVID-19 virus SNOMED Code(s): 955435187357822766 ICD Code: U07.1 - COVID-19; J12.89 - OTHER VIRAL PNEUMONIA Status: Acute Current Visit: Yes (2) Hypokalemia SNOMED Code(s): 59106676 ICD Code: E87.6 - HYPOKALEMIA Status: Acute Current Visit: Yes (3) Acute respiratory failure due to COVID-19 SNOMED Code(s): 294495272 ICD Code: U07.1 - COVID-19; J96.00 - ACUTE RESPIRATORY FAILURE, UNSP W HYPOXIA OR HYPERCAPNIA Status: Acute Current Visit: Yes (4) Lactic acidosis SNOMED Code(s): 82408474 ICD Code: E87.2 - ACIDOSIS Status: Acute Current Visit: Yes - Discharge Plan *PRESCRIPTION DRUG MONITORING PROGRAM REVIEWED*: No *COPY OF PRESCRIPTION DRUG MONITORING REPORT IN PATIENT ARLETTE: No Prescriptions/Med Rec: dexAMETHasone [Decadron] 6 mg PO DAILY #7 tablet Apixaban [Eliquis] 2.5 mg PO BID #56 tablet Doxycycline [Vibra-Tabs] 100 mg PO Q12HR #10 tab Home Medications: Home Meds FLUoxetine HCl [Prozac] 20 mg PO DAILY 07/07/13 [History] Fexofenadine/Pseudoephedrine [Sabrina-D 12 Hour Tablet] 1 each PO BID 07/07/13 [History] Omeprazole [Prilosec] 20 mg PO DAILY 07/07/13 [History] Pravastatin [Pravachol] 40 mg PO BEDTIME 12/12/19 [History] Apixaban [Eliquis] 2.5 mg PO BID #56 tablet 12/15/19 [Rx] Doxycycline [Vibra-Tabs] 100 mg PO Q12HR #10 tab 12/15/19 [Rx] dexAMETHasone [Decadron] 6 mg PO DAILY #7 tablet 12/15/19 [Rx] Referrals: Anamika Tinoco NP [Primary Care Provider] - - Discharge Summary/Plan Comment DC Time >30 min.: Yes - General Info Date of Service: 12/15/19 Admission Dx/Problem (Free Text: Admission Diagnosis/Problem Admission Diagnosis/Problem Hypokalemia Subjective Update: No acute events overnight. Lactic acid normal today. Denies nausea, vomiting, diarrhea, constipation, dysuria, hematuria, edema, or any new symptoms. - Patient Data Vitals - Most Recent: Last Vital Signs Temp 97.4 F 12/15/19 08:35 Pulse 71 12/15/19 08:35 Resp 21 H 12/15/19 08:35 BP 141/83 H 12/15/19 08:35 Pulse Ox 91 L 12/15/19 08:35 Weight - Most Recent: 174 lb I&O - Last 24 hours: Intake & Output 12/14/19 12/15/19 12/15/19 22:59 06:59 14:59 Intake Total 242 510 Balance 242 510 Lab Results - Last 24 hrs: Laboratory Results - last 24 hr 12/14/19 12/14/19 12/14/19 Range/Units 06:55 11:00 15:20 D-Dimer, Quantitative (0-400) ng/mL Sodium (136-145) mmol/L Potassium (3.5-5.1) mmol/L Chloride (98-107) mmol/L Carbon Dioxide (21-32) mmol/L Anion Gap (7-13) mEq/L BUN (7-18) mg/dL Creatinine (0.55-1.02) mg/dL Est Cr Clr Drug Dosing mL/min Estimated GFR (MDRD) Glucose (74-99) mg/dL Lactic Acid 2.7 H* 2.2 H* (0.4-2.0) mmol/L Calcium (8.5-10.1) mg/dL Magnesium (1.8-2.4) mg/dL Ferritin (8-252) mg/mL Total Bilirubin (0.2-1.0) mg/dL Direct Bilirubin (0.0-0.2) mg/dL Indirect Bilirubin AST (15-37) U/L ALT (14-59) U/L Alkaline Phosphatase (46-116) U/L Lactate Dehydrogenase (81-234) U/L Troponin I (0.000-0.056) ng/mL C-Reactive Protein (0.0-0.9) mg/dL Total Protein (6.4-8.2) g/dL Albumin (3.4-5.0) g/dL Globulin Albumin/Globulin Ratio Procalcitonin 0.08 (<0.10) ng/mL 12/14/19 12/15/19 12/15/19 Range/Units 19:48 06:20 06:20 D-Dimer, Quantitative 851 H (0-400) ng/mL Sodium 146 H (136-145) mmol/L Potassium 4.0 (3.5-5.1) mmol/L Chloride 109 H (98-107) mmol/L Carbon Dioxide 26 (21-32) mmol/L Anion Gap 15.0 H (7-13) mEq/L BUN 17 (7-18) mg/dL Creatinine 0.71 (0.55-1.02) mg/dL Est Cr Clr Drug Dosing 77.84 mL/min Estimated GFR (MDRD) > 60 Glucose 88 (74-99) mg/dL Lactic Acid 2.8 H* (0.4-2.0) mmol/L Calcium 8.9 (8.5-10.1) mg/dL Magnesium 1.8 (1.8-2.4) mg/dL Ferritin (8-252) mg/mL Total Bilirubin 0.8 (0.2-1.0) mg/dL Direct Bilirubin 0.2 (0.0-0.2) mg/dL Indirect Bilirubin 0.6 AST 64 H (15-37) U/L ALT 83 H (14-59) U/L Alkaline Phosphatase 61 (46-116) U/L Lactate Dehydrogenase 237 H (81-234) U/L Troponin I < 0.017 (0.000-0.056) ng/mL C-Reactive Protein (0.0-0.9) mg/dL Total Protein 6.2 L (6.4-8.2) g/dL Albumin 2.6 L (3.4-5.0) g/dL Globulin 3.6 Albumin/Globulin Ratio 0.72 Procalcitonin (<0.10) ng/mL 12/15/19 12/15/19 12/15/19 Range/Units 06:20 06:20 06:20 D-Dimer, Quantitative (0-400) ng/mL Sodium (136-145) mmol/L Potassium (3.5-5.1) mmol/L Chloride (98-107) mmol/L Carbon Dioxide (21-32) mmol/L Anion Gap (7-13) mEq/L BUN (7-18) mg/dL Creatinine (0.55-1.02) mg/dL Est Cr Clr Drug Dosing mL/min Estimated GFR (MDRD) Glucose (74-99) mg/dL Lactic Acid 2.0 (0.4-2.0) mmol/L Calcium (8.5-10.1) mg/dL Magnesium (1.8-2.4) mg/dL Ferritin 1838 H (8-252) mg/mL Total Bilirubin (0.2-1.0) mg/dL Direct Bilirubin (0.0-0.2) mg/dL Indirect Bilirubin AST (15-37) U/L ALT (14-59) U/L Alkaline Phosphatase (46-116) U/L Lactate Dehydrogenase (81-234) U/L Troponin I (0.000-0.056) ng/mL C-Reactive Protein 2.3 H (0.0-0.9) mg/dL Total Protein (6.4-8.2) g/dL Albumin (3.4-5.0) g/dL Globulin Albumin/Globulin Ratio Procalcitonin (<0.10) ng/mL Med Orders - Current: Current Medications Acetaminophen (Tylenol) 650 mg PO Q4H PRN PRN Reason: pain or fever Dexamethasone (Dexamethasone) 6 mg IVPUSH DAILY [facility] Last Admin: 12/15/19 08:40 Dose: 6 mg Documented by: Enoxaparin Sodium (Lovenox) 40 mg SUBCUT BID [facility] Last Admin: 12/15/19 08:38 Dose: 40 mg Documented by: Fluoxetine HCl (Prozac) 20 mg PO DAILY [facility] Last Admin: 12/15/19 08:39 Dose: 20 mg Documented by: Remdesivir 100 mg/ Sodium (Chloride) 230 mls @ 230 mls/hr IV Q24H [facility] Stop: 12/17/19 14:59 Last Infusion: 12/14/19 16:55 Dose: Infused Documented by: Influenza Virus Vaccine (Pharmacy To Dose - Influenza Vaccine) 1 each IM DAILY [facility] Last Admin: 12/15/19 08:45 Dose: Not Given Documented by: Levofloxacin (Levaquin) 750 mg PO Q24H [facility] Stop: 12/19/19 21:00 Last Admin: 12/14/19 21:09 Dose: 750 mg Documented by: Omeprazole (Omeprazole) 20 mg PO ACBREAKFAST [facility] Last Admin: 12/15/19 05:41 Dose: 20 mg Documented by: Ondansetron HCl (Zofran Odt) 4 mg PO Q6H PRN PRN Reason: nausea, able to take PO Ondansetron HCl (Zofran) 4 mg IVPUSH Q6H PRN PRN Reason: Nausea/Vomiting Potassium Chloride (Klor-Con 10) 40 meq PO BIDMEALS [facility] Last Admin: 12/15/19 08:39 Dose: 40 meq Documented by: Pravastatin Sodium (Pravachol) 40 mg PO BEDTIME [facility] Last Admin: 12/14/19 21:11 Dose: 40 mg Documented by: Sodium Chloride (Saline Flush) 10 ml FLUSH ASDIRECTED PRN PRN Reason: Keep Vein Open Last Admin: 12/15/19 08:41 Dose: 10 ml Documented by: Discontinued Medications Diphenhydramine HCl (Benadryl) 25 mg IVPUSH ONETIME ONE Stop: 12/13/19 12:49 Last Admin: 12/14/19 09:32 Dose: Not Given Documented by: Diphenhydramine HCl (Benadryl) 25 mg IVPUSH ONETIME ONE Stop: 12/14/19 09:31 Last Admin: 12/14/19 09:48 Dose: 25 mg Documented by: Enoxaparin Sodium (Lovenox) 40 mg SUBCUT ONETIME ONE Stop: 12/12/19 22:01 Last Admin: 12/12/19 22:17 Dose: 40 mg Documented by: Furosemide (Lasix) 20 mg IVPUSH NOW ONE Stop: 12/14/19 11:24 Last Admin: 12/14/19 11:27 Dose: 20 mg Documented by: Lactated Ringer's (Ringers, Lactated) 1,000 mls @ 125 mls/hr IV ASDIRECTED [facility] Last Infusion: 12/13/19 16:55 Dose: Infused Documented by: Remdesivir 200 mg/ Sodium (Chloride) 210 mls @ 210 mls/hr IV ONETIME ONE Stop: 12/12/19 21:13 Last Admin: 12/13/19 01:11 Dose: Not Given Documented by: Remdesivir 100 mg/ Sodium (Chloride) 230 mls @ 230 mls/hr IV Q24H [facility] Potassium Chloride 10 meq/ (Premix) 100 mls @ 100 mls/hr IV Q1H [facility] Stop: 12/13/19 02:14 Last Infusion: 12/13/19 04:57 Dose: Infused Documented by: Sodium Chloride (Normal Saline) 250 mls @ 20 mls/hr IV ASDIRECTED DICK Last Admin: 12/13/19 13:26 Dose: 20 mls/hr Documented by: Remdesivir 200 mg/ Sodium (Chloride) 210 mls @ 210 mls/hr IV ONETIME ONE Stop: 12/13/19 14:59 Last Infusion: 12/13/19 17:10 Dose: Infused Documented by: Sodium Chloride (Normal Saline) 1,000 mls @ 100 mls/hr IV ASDIRECTED [facility] Stop: 12/14/19 19:01 Last Admin: 12/14/19 11:29 Dose: 100 mls/hr Documented by: Iopamidol (Isovue-370 (76%)) 100 ml IVPUSH ONETIME ONE Stop: 12/13/19 15:49 Last Admin: 12/13/19 15:53 Dose: 66 ml Documented by: - Exam General: Reports: Alert, Oriented, Cooperative, No Acute Distress HEENT: Reports: Pupils Equal, Pupils Reactive, Mucous Membr. Moist/[place] Neck: Reports: Supple Lungs: Reports: Rales (In lower lung escamilla) Cardiovascular: Reports: Regular Rate, Regular Rhythm, No Murmurs GI/Abdominal Exam: Normal Bowel Sounds, Soft, Non-Tender, No Distention Skin: Reports: Warm Neurological: Reports: No New Focal Deficit Psy/Mental Status: Reports: Alert, Normal Affect, Normal Mood
== END 2019-12-15 13:40 | disposition home or self-care (01) | DRG 137 ==
LOC: UNDOADMIN 15:47 → DL.MS 15:47
PROVIDERS: ADMIT Student in an Organized Health Care Education/Training Program; ATTEND Internal Medicine
PROC: XW033E5 Introduction of Remdesivir Anti-infective into Peripheral Vein, Percutaneous Approach, New Technology Group 5 (ICD-10-PCS; 2019-12-12)
PROC: 8E0ZXY6 Isolation (ICD-10-PCS; 2019-12-12)
PROC: XW13325 Transfusion of Convalescent Plasma (Nonautologous) into Peripheral Vein, Percutaneous Approach, New Technology Group 5 (ICD-10-PCS; principal; 2019-12-14)
DX: U07.1 COVID-19 (principal); J12.89 Other viral pneumonia; J96.01 Acute respiratory failure with hypoxia; E87.6 Hypokalemia; E87.2 Acidosis; F32.9 Major depressive disorder, single episode, unspecified; K21.9 Gastro-esophageal reflux disease without esophagitis; F39 Unspecified mood [affective] disorder; E66.9 Obesity, unspecified; Z88.0 Allergy status to penicillin; Z88.1 Allergy status to other antibiotic agents; Z88.6 Allergy status to analgesic agent; Z79.899 Other long term (current) drug therapy; Z68.27 Body mass index [BMI] 27.0-27.9, adult
CPT/HCPCS: 36415; 36430; 71260; 80048; 80076; 82728; 83605; 83615; 83735; 84100; 84132; 84145; 84484; 85025; 85027; 85379; 86140; 86900; 86901; 94760; 99222; 99232; 99239; A9270-GY; J1100; J1200; J1650; J1940; J3480; J7030; J7050; J7120; P9017; Q9967

== ENCOUNTER → 2021-04-14 | Day surgery (SDC) | payer MEDICARE, BC ==
[~2021-04-14] MED LIST: Dextrose 5%-0.45% NaCl 1,000 ML IV SCH; Midazolam 1 MG/ML 2 ML SDV IV ONE; Midazolam 1 MG/ML 2 ML SDV ONE; fentaNYL 100 MCG/2 ML SDV IV ONE; fentaNYL 100 MCG/2 ML SDV ONE
[2021-04-14 11:19] VITALS: BP 157/68; PULSE 78
== END | disposition home or self-care (01) ==
LOC: DL.ENDO 06:57
PROVIDERS: ATTEND Internal Medicine Gastroenterology
DX: R93.5 Abnormal findings on diagnostic imaging of other abdominal regions, including retroperitoneum (principal); K21.9 Gastro-esophageal reflux disease without esophagitis; E66.09 Other obesity due to excess calories; I10 Essential (primary) hypertension; F41.1 Generalized anxiety disorder; D69.6 Thrombocytopenia, unspecified; K75.81 Nonalcoholic steatohepatitis (NASH); Z20.822 Contact with and (suspected) exposure to COVID-19; Z01.812 Encounter for preprocedural laboratory examination; Z68.30 Body mass index [BMI] 30.0-30.9, adult
CPT/HCPCS: 43235; J2250; J3010; J7042; U0002

== ENCOUNTER 2021-04-17 06:28 | Day surgery (SDC) | payer MEDICARE, BC ==
[~2021-04-17 06:28] MED LIST changes: -Dextrose 5%-0.45% NaCl 1,000 ML IV SCH; -Midazolam 1 MG/ML 2 ML SDV IV ONE; -fentaNYL 100 MCG/2 ML SDV IV ONE
[2021-04-17] MEDS ORDERED: Midazolam 1 MG/ML 2 ML SDV IV ONE ×7 (06:29→07:41)
[2021-04-17] MEDS ORDERED: fentaNYL 100 MCG/2 ML SDV IV ONE ×3 (06:29→07:34)
[2021-04-17] MEDS ORDERED: Sodium Chloride 0.9% 10 ML Syringe FLUSH PRN (07:02)
[2021-04-17] MEDS ORDERED: Dextrose 5%-0.45% NaCl 1,000 ML IV SCH (07:15)
[2021-04-17] MEDS ORDERED: Sodium Chloride 0.9% 10 ML Syringe FLUSH SCH (09:00)
[2021-04-17 09:58] VITALS: BP 128/66; PULSE 98
== END 2021-04-17 10:07 | disposition home or self-care (01) ==
LOC: DL.ENDO 06:28
PROVIDERS: ATTEND Internal Medicine Gastroenterology
DX: Z12.11 Encounter for screening for malignant neoplasm of colon (principal); K63.5 Polyp of colon; K75.81 Nonalcoholic steatohepatitis (NASH); K57.30 Diverticulosis of large intestine without perforation or abscess without bleeding
CPT/HCPCS: 45385; J2250; J3010; J7042; 88305